=== PATIENT | male | born 1960 | race Caucasian/White ===

== ENCOUNTER → 2019-01-19 | Outpatient (REF) | payer OTHER, MEDICAID ==
[2019-01-19 13:20] LABS: BASO # 0.1 10^3/uL (0.0-0.2); BASO % 1.5 % (0.0-1.0); EOS # 0.4 10^3/uL (0.0-0.50); EOS % 5.4 % (0.0-3.0); HEMATOCRIT 41.9 % (42.0-52.0); HEMOGLOBIN 14.1 g/dl (13.5-17.5); LYMPH # 1.4 10^3/uL (1.5-4.5); LYMPH % 21.4 % (24.0-44.0); MEAN CORPUSCULAR HEMOGLOBIN 34.6 pg (27.0-33.0); MEAN CORPUSCULAR HGB CONC 33.7 g/dl (32.0-36.5); MEAN CORPUSCULAR VOLUME 102.7 fl (80.0-96.0); MONO # 0.7 10^3/uL (0.0-0.8); NEUTROPHILS # 4.1 10^3/uL (1.8-7.7); NEUTROPHILS % 61.4 % (36.0-66.0); PLATELET COUNT, AUTOMATED 514 10^3/uL (150-450); RED BLOOD COUNT 4.08 10^6/uL (4.30-6.10); WHITE BLOOD COUNT 6.7 10^3/uL (4.0-10.0)
[2019-01-19 13:39] LABS: ALBUMIN 3.8 GM/DL (3.2-5.2); ALT/SGPT 20 U/L (12-78); BILIRUBIN,TOTAL 0.6 MG/DL (0.2-1.0); BLOOD UREA NITROGEN 13 MG/DL (7-18); CALCIUM LEVEL 8.9 MG/DL (8.5-10.1); CARBON DIOXIDE LEVEL 27 MEQ/L (21-32); CHLORIDE LEVEL 101 MEQ/L (98-107); CHOLESTEROL LEVEL 212 MG/DL (<200); CREATININE FOR GFR 1.02 MG/DL (0.70-1.30); FREE T4 1.27 NG/DL (0.76-1.46); GLOMERULAR FILTRATION RATE > 60.0 (>56); GLUCOSE, FASTING 93 MG/DL (70-100); HDL CHOLESTEROL 53 MG/DL (>40); LDL CHOLESTEROL 139 MG/DL (<100); NON-HDL-C 159 MG/DL; POTASSIUM SERUM 4.3 MEQ/L (3.5-5.1); SODIUM LEVEL 136 MEQ/L (136-145); THYROID STIMULATING HORMONE 0.779 uIU/ML (0.358-3.740); TOTAL PROTEIN 6.8 GM/DL (6.4-8.2); TRIGLYCERIDES LEVEL 99 MG/DL (<150)
[2019-01-19 15:46] LABS: HEMOGLOBIN A1c 5.9 %
== END ==
LOC: M LAB REF 12:29
PROVIDERS: ATTEND Family Medicine
DX: Z12.5 Encounter for screening for malignant neoplasm of prostate (principal); Z13.228 Encounter for screening for other metabolic disorders; N40.0 Benign prostatic hyperplasia without lower urinary tract symptoms

== ENCOUNTER 2019-01-27 20:15 | Emergency (ER) | payer MEDICAID, OTHER ==
[~2019-01-27] VITALS: Ht 170.2 cm; Wt 72.3 kg
[2019-01-27 21:15] LABS: BASO # 0.1 10^3/uL (0.0-0.2); BASO % 0.9 % (0.0-1.0); EOS # 0.1 10^3/uL (0.0-0.50); EOS % 1.3 % (0.0-3.0); HEMATOCRIT 39.1 % (42.0-52.0); HEMOGLOBIN 13.7 g/dl (13.5-17.5); LYMPH # 2.3 10^3/uL (1.5-4.5); LYMPH % 21.6 % (24.0-44.0); MEAN CORPUSCULAR HEMOGLOBIN 35.2 pg (27.0-33.0); MEAN CORPUSCULAR VOLUME 100.5 fl (80.0-96.0); MONO % 9.7 % (0.0-5.0); NEUTROPHILS % 66.2 % (36.0-66.0); PLATELET COUNT, AUTOMATED 413 10^3/uL (150-450); RED BLOOD COUNT 3.89 10^6/uL (4.30-6.10); WHITE BLOOD COUNT 10.6 10^3/uL (4.0-10.0)
[2019-01-27 22:02] LABS: ALBUMIN 3.8 GM/DL (3.2-5.2); ALT/SGPT 18 U/L (12-78); BILIRUBIN,DIRECT < 0.1 MG/DL (0.0-0.2); BILIRUBIN,TOTAL 0.3 MG/DL (0.2-1.0); BLOOD UREA NITROGEN 13 MG/DL (7-18); CARBON DIOXIDE LEVEL 29 MEQ/L (21-32); CHLORIDE LEVEL 101 MEQ/L (98-107); CREATININE FOR GFR 0.96 MG/DL (0.70-1.30); GLOMERULAR FILTRATION RATE > 60.0 (>56); GLUCOSE, FASTING 94 MG/DL (70-100); LIPASE 106 U/L (73-393); POTASSIUM SERUM 4.2 MEQ/L (3.5-5.1); SODIUM LEVEL 135 MEQ/L (136-145); TOTAL PROTEIN 6.9 GM/DL (6.4-8.2)
--- NOTE | 2019-01-27 22:14 | REPVR ---
EXAM: CT Abdomen and Pelvis Without Contrast EXAM DATE/TIME: 01/27/2019 9:10 PM CLINICAL HISTORY: 58 years old, male; Abdominal pain; Flank; Right; Additional info: R flank pain, urinary renention, h/o constipation TECHNIQUE: Imaging protocol: Axial computed tomography images of the abdomen and pelvis without contrast. Coronal and sagittal reformatted images were created and reviewed. Radiation optimization: All CT scans at this facility use at least one of these dose optimization techniques: automated exposure control; mA and/or kV adjustment per patient size (includes targeted exams where dose is matched to clinical indication); or iterative reconstruction. COMPARISON: No relevant prior studies available. FINDINGS: Lungs: The lung bases appear clear. Heart: The heart is normal in size. ABDOMEN: Liver: Normal-appearing liver. Gallbladder and bile ducts: The gallbladder is contracted. Normal common bile duct. Pancreas: Normal pancreas. Spleen: Normal spleen. Adrenals: Normal adrenal glands. Kidneys and ureters: There is mild prominence of the right and left collecting system. There is no evidence of stone in the right or the left ureter. There is calcification at the origin of the left renal artery and probable significant narrowing. Stomach and bowel: Normal. No obstruction. No mucosal thickening. Appendix: Normal-appearing appendix. PELVIS: Bladder: There is severe distention of the urinary bladder. The prostate is enlarged with a prominent superior lobulation impressing on the floor of the urinary bladder. The seminal vesicles are enlarged especially on the left. A prominent lobulation of the prostate may be secondary to hypertrophy. Prostate neoplasm could not be excluded with this appearance. This produces partial bladder outlet obstruction and severe retention of urine. ABDOMEN and PELVIS: Intraperitoneal space: There is no evidence of pneumoperitoneum. Bones/joints: There is moderate posterior disc protrusion L3-L4, L4-L5, L5-S1. There is severe bilateral L5 neural foramina narrowing. Soft tissues: Unremarkable. Vasculature: Normal. No abdominal aortic aneurysm. Lymph nodes: The aorta is normal in size and there is no evidence of lymphadenopathy. IMPRESSION: 1. No evidence of obstruction right ureter. 2. Severe distention of the urinary bladder probably secondary to partial bladder outlet obstruction. 3. Enlargement of the prostate with a large central superior lobulation with the prostate impressing on the floor of the urinary bladder. This may be secondary to hypertrophy however neoplasm could be responsible for this appearance. This enlarged prostate would be the cause of partial bladder outlet obstruction. In addition there is marked enlargement of the seminal vesicles greater on the left which is probably pathologic enlargement. Electronically signed by: Jarett Marquis On 01/27/2019 22:14:09 PM
[2019-01-27] MEDS ORDERED: FLOM0.4C39 PO (22:44)
[2019-01-27] MEDS ORDERED: LISI20TA PO (22:53)
[2019-01-27] MEDS ORDERED: ASPI1CHW2 PO (22:53)
[2019-01-27] MEDS ORDERED: ATOR40TA75 PO (22:53)
[2019-01-27] MEDS ORDERED: FLUO10CA8 PO (22:53)
[2019-01-27] MEDS ORDERED: ALL10TAB28 PO (22:53)
[2019-01-27] MEDS ORDERED: VITA1CAP25 PO (22:53)
[2019-01-27 23:00] VITALS: BP 135/88
--- NOTE | 2019-01-31 15:22 | ED PDOC ---
Post-Departure Follow-Up janna gore and yajaira faxed formal report of ct abd/p for fu Newton Trent MD January 31, 2019 15:22
== END 2019-01-27 23:04 | disposition home or self-care (01) ==
LOC: M ED 20:15
DX: N40.1 Benign prostatic hyperplasia with lower urinary tract symptoms (principal); R33.8 Other retention of urine; I10 Essential (primary) hypertension; E78.5 Hyperlipidemia, unspecified; Z87.891 Personal history of nicotine dependence; Z79.899 Other long term (current) drug therapy; Z79.82 Long term (current) use of aspirin

== ENCOUNTER 2019-01-28 05:20 | Emergency (ER) | payer OTHER ==
[~2019-01-28 05:20] MED LIST: ALL10TAB28 PO; ASPI1CHW2 PO; ATOR40TA75 PO; FLOM0.4C39 PO; FLUO10CA8 PO; LISI20TA PO; VITA1CAP25 PO
[2019-01-28] MEDS ORDERED: TAMSULOSIN 0.4 MG CAP PO ONE (06:45)
[2019-01-28 07:41] VITALS: BP 140/78
== END 2019-01-28 07:49 | disposition home or self-care (01) ==
LOC: M ED 05:20
DX: N32.89 Other specified disorders of bladder (principal); N40.1 Benign prostatic hyperplasia with lower urinary tract symptoms; Z96.0 Presence of urogenital implants; M54.9 Dorsalgia, unspecified; I10 Essential (primary) hypertension; Z87.891 Personal history of nicotine dependence; Z79.899 Other long term (current) drug therapy; Z79.82 Long term (current) use of aspirin

== ENCOUNTER → 2019-02-04 | Outpatient (CLI) | payer OTHER | LOC: M SMT 11:14 | PROVIDERS: ATTEND Nurse Practitioner Family | DX: Z12.5 Encounter for screening for malignant neoplasm of prostate (principal) ==

== ENCOUNTER → 2019-02-08 | Outpatient (REF) | payer OTHER ==
[2019-02-08 19:17] LABS: APPEARANCE, URINE CLEAR (CLEAR); BACTERIA, URINE AUTO NEGATIVE (NEGATIVE); BILIRUBIN, URINE AUTO NEGATIVE (NEGATIVE); BLOOD, URINE BLOOD NEGATIVE (NEGATIVE); COLOR, URINE STRAW (YELLOW); GLUCOSE, URINE (UA) AUTO NEGATIVE (NEGATIVE); KETONE, URINE AUTO NEGATIVE (NEGATIVE); LEUKOCYTE ESTERASE, URINE AUTO NEGATIVE (NEGATIVE); NITRITE, URINE AUTO NEGATIVE (NEGATIVE); PROTEIN, URINE AUTO NEGATIVE (NEGATIVE); RBC, URINE AUTO 0 /HPF (0-3); SPECIFIC GRAVITY URINE AUTO 1.003 (1.002-1.035); SQUAMOUS EPITHELIAL CELL UR AU 0 /HPF (0-6); UROBILINOGEN, URINE AUTO 0.2 mg/dL (0.0-2.0); WBC, URINE AUTO 0 /HPF (0-3)
== END ==
LOC: M SMT 17:27
PROVIDERS: ATTEND Nurse Practitioner Family
DX: N39.0 Urinary tract infection, site not specified (principal)

== ENCOUNTER → 2019-02-25 | Outpatient (CLI) | payer OTHER ==
--- NOTE | 2019-02-25 11:23 | REP ---
RENAL AND BLADDER ULTRASOUND: Real-time sonographic evaluation of the kidneys performed. The kidneys are normal in size and echotexture, right kidney measuring 11.7 x 5.2 x 5.3 cm and left kidney 1.3 x 4.9 x 5.8 cm. There is no hydronephrosis bilaterally. No renal mass is seen. Urinary bladder measures 11.2 x 7.4 x 7.9 cm for a total volume of 341 mL. Bilateral ureteral jets are seen in the urinary bladder. There is no mass or calculus seen. Postvoid residual is 73 mL. Prostate measures 3.5 x 2.9 x 4.2 cm for a total volume of 22.3 mL. IMPRESSION: No hydronephrosis bilaterally and no evidence of renal calculus. Urinary bladder demonstrates no mass or calculus. There is postvoid residual of 73 mL. Electronically Signed by Tristen Pepe MD 02/25/2019 04:14 P
== END ==
LOC: M RAD 09:13
PROVIDERS: ATTEND Nurse Practitioner Family
DX: R33.9 Retention of urine, unspecified (principal)

== ENCOUNTER → 2019-03-04 | Outpatient (CLI) | payer OTHER ==
[2019-03-08 11:44] LABS: PSA % FREE 7.8 % (.); PSA FREE 0.31 ng/mL
== END ==
LOC: M SMT 14:21
PROVIDERS: ATTEND Nurse Practitioner Family
DX: R97.20 Elevated prostate specific antigen [PSA] (principal)